=== PATIENT | female | born 1975 | race Two or more races ===

== ENCOUNTER 2018-06-13 16:35 | Emergency (ER) | payer OTHER ==
[~2018-06-13] VITALS: Ht 157.5 cm; Wt 40.4 kg
--- NOTE | 2018-06-13 16:45 | NUR ---
ED Nurse Note: pt brought in by med staff from [facility] facility c/o chest pain x 1 wk, pt states it started when she ate sunday and progressively worsen, pt states it hurts when she breathes. denies sob or -n/v/d. pt AA&ox,4 gcs=15, skin warm and dry, resp even and unlabored, -n/v/d, ambulates w/ steady gait, will cont monitor. NSR on media monitor, staff at the bedside, vss, bed lowest position siderail x2. pt advised to notify staff if needed assist.
--- NOTE | 2018-06-13 17:11 | Emergency Room Report ---
History of Present Illness General Chief Complaint: Chest Pain Source: Patient Present Illness HPI 43-year-old female patient presents the ER complaining of chest pain times 1 week. Patient was referred to ER by nurse practitioner at her treatment facility, [facility] [place]. Patient is currently being treated there for eating disorder, was referred to the ER due to concern over possible refeeding syndrome and requesting EKG and stat cardiac labs. States began refeeding program 1 week and 3 days ago. Patient complaining of left upper chest pain that is reproducible and worse with deep inhalation and palpation. Denies history of heart attack or stroke. Denies history of asthma. Denies history of DVT or PE. Denies history of asthma. Denies taking blood thinner medications. Currently taking Zantac, like Lamictal, gabapentin, prazosin, Geodon, Abilify, vitamin D, Osteo Bi-Flex tabs; was informed by patient therapist who is currently bedside that her primary care provider will request that we do not change or alter any of her medications. Denies fever or recent illness. Denies cough. Denies calf pain. Also complaining of lightheadedness. Denies vertigo. Denies photophobia or phonophobia. Reports symptoms occur with position changes. Denies syncope. Denies hx of seizures. Denies vomiting or diarrhea. Denies improvement in chest pain symptoms with leaning forward. Allergies: Coded Allergies: ASPIRIN (Verified Allergy, Unknown, Swelling, 06/13/18) EGG (Verified Allergy, Unknown, 06/13/18) Patient History Past Medical History: see triage record Last Menstrual Period: 04/2016 Now: No Reviewed Nursing Documentation: PMH: Agreed; PSxH: Agreed Nursing Documentation-PMH Past Medical History: No History, Except For Review of Systems All Other Systems: negative except mentioned in HPI Physical Exam Vital Signs Date Time Temp Pulse Resp B/P (MAP) Pulse Ox O2 Delivery O2 Flow Rate FiO2 06/13/18 16:39 97.5 77 20 111/74 100 Room Air Sp02 EP Interpretation: reviewed, normal General Appearance: well appearing, no apparent distress, alert, GCS 15, non- toxic Head: normocephalic, atraumatic Eyes: bilateral eye normal inspection, bilateral eye PERRL, bilateral eye EOMI ENT: hearing grossly normal, normal pharynx, no angioedema, normal voice, uvula midline, moist mucus membranes Neck: full range of motion, no bony tend Respiratory: lungs clear, normal breath sounds, no rhonchi, no respiratory distress, no accessory muscle use, no wheezing, speaking full sentences Cardiovascular #1: regular rate, rhythm, no edema, other - Left upper chest TTP , no bony deformity, no flail chest Gastrointestinal: non tender, soft, no mass, non-distended, no guarding, no rebound Musculoskeletal: back normal, digits/nails normal, gait/station normal, normal range of motion, non-tender Neurologic: alert, oriented x3, responsive, motor strength/tone normal, sensory intact Skin: no rash Medical Decision Making PA Attestation Dr. Chavarria is my supervising Physician whom patient management has been discussed with. Diagnostic Impression: Primary Impression: Nonspecific chest pain Additional Impression: Urinary tract infection ER Course Pt. presents to the ED c/o chest pain. Ddx considered but are not limited to OR, arrhythmia, DVT, PE, pneumonia, bronchitis, costochondritis, refeeding syndrome, CHF, rhabdomyolysis, electrolyte abnormality, pericarditis. No calf swelling, negative Ronit's sign, no tahycardia, no hemoptysis, no recent travel, low suspicion for DVT pr PE per Well's criteria. Low suspicion for cardiac cause of pain. Will order labs to rule out. On PE, chest is TTP; chest pain likely musculoskeletal in nature. Patient instructed to take NSAIDs as needed for pain symptoms. Provide with Tylenol in the ER. Vital signs: are WNL, pt. is afebrile Ordered X-ray, labs, troponin, EKG and pain medication. ER COURSE Spoke with RN from reasons for the potential for patient was sent from, informed that there was concern for possible cardiac etiology of symptoms and requesting cardiac labs. Patient had been complaining of dizziness and had near syncopal episodes. Cranial nerves intact as tested, no focal neuro deficits. CBC, CMP within normal limits, no elevation in WBCs or LFTs, electrolytes unremarkable BNP not elevated Phosphorus WNL. Troponin not elevated Vit. B1 levels pending, send out lab CXR negative for acute disease EKG shows some T wave flattening, no ST elevations, reviewed by Dr. Chavarria. UA shows elevated WBCs, will treat with antibiotics to cover for possible UTI. Patient denies dysuria, hematuria. Prior to discharge reports mild suprapubic discomfort, repeat abdominal exam shows no TTP, does not require CT abdomen, likely UTI causing symptoms. Labs not consistent refeeding syndrome, no elevation in phosphorus, Followup with primary care provider, discuss referral to cardiology. Patient will be admitted. patient EKG and chest x-ray unremarkable, troponin negative, low suspicion for OR or CHF. Reviewed results with Dr. chavarria. ER precautions given. DISCHARGE: At this time pt is stable for d/c to home. Patient is resting comfortably, in no acute distress, nontoxic appearing, talking without difficulty. Patient to take medications as instructed Will provide with patient care instructions and any necessary prescriptions. Care plan and follow-up instructions provided. Patient instructed to follow-up with primary care provider in 3 - 5 days. Patient questions asked and answered. Patient reports understanding and agreement to treatment plan. ER precautions given. Patient instructed to return to ER immediately for any new or worsening of symptoms including but not limited to increasing SOB, persistent fever. - Please note that this Emergency Department Report was dictated using Rosal[employer] tank installer technology software, occasionally this can lead to erroneous entry secondary to interpretation by the dictation equipment. Labs Test 06/13/18 17:40 06/13/18 17:55 White Blood Count 4.2 K/UL (4.8-10.8) Red Blood Count 4.57 M/UL (4.20-5.40) Hemoglobin 14.2 G/DL (12.0-16.0) Hematocrit 43.1 % (37.0-47.0) Mean Corpuscular Volume 94 FL (80-99) Mean Corpuscular Hemoglobin 31.1 PG (27.0-31.0) Mean Corpuscular Hemoglobin Concent 33.0 G/DL (32.0-36.0) Red Cell Distribution Width 12.5 % (11.6-14.8) Platelet Count 158 K/UL (150-450) Mean Platelet Volume 8.2 FL (6.5-10.1) Neutrophils (%) (Auto) 74.5 % (45.0-75.0) Lymphocytes (%) (Auto) 16.4 % (20.0-45.0) Monocytes (%) (Auto) 5.9 % (1.0-10.0) Eosinophils (%) (Auto) 1.6 % (0.0-3.0) Basophils (%) (Auto) 1.6 % (0.0-2.0) Urine Color Pale yellow Urine Appearance Clear Urine pH 7 (4.5-8.0) Urine Specific [place] 1.005 (1.005-1.035) Urine Protein Negative (NEGATIVE) Urine Glucose (UA) Negative (NEGATIVE) Urine Ketones Negative (NEGATIVE) Urine Blood Negative (NEGATIVE) Urine Nitrite Negative (NEGATIVE) Urine Bilirubin Negative (NEGATIVE) Urine Urobilinogen Normal MG/DL (0.0-1.0) Urine Leukocyte Esterase 3+ (NEGATIVE) Urine RBC 0-2 /HPF (0 - 2) Urine WBC 15-20 /HPF (0 - 2) Urine Squamous Epithelial Cells Many /LPF (NONE/OCC) Urine Bacteria Few /HPF (NONE) Urine HCG, Qualitative Negative (NEGATIVE) Sodium Level 138 MMOL/L (136-145) Potassium Level 4.2 MMOL/L (3.5-5.1) Chloride Level 103 MMOL/L (98-107) Carbon Dioxide Level 29 MMOL/L (21-32) Anion Gap 6 mmol/L (5-15) Blood Urea Nitrogen 10 mg/dL (7-18) Creatinine 0.7 MG/DL (0.55-1.30) Estimat Glomerular Filtration Rate > 60 mL/min (>60) Glucose Level 97 MG/DL (74-106) Calcium Level 9.0 MG/DL (8.5-10.1) Phosphorus Level 3.4 MG/DL (2.5-4.9) Total Bilirubin 0.5 MG/DL (0.2-1.0) Aspartate Amino Transf (AST/SGOT) 20 U/L (15-37) Alanine Aminotransferase (ALT/SGPT) 26 U/L (12-78) Alkaline Phosphatase 125 U/L (46-116) Total Creatine Kinase 272 U/L (26-308) Troponin I 0.000 ng/mL (0.000-0.056) Pro-B-Type Natriuretic Peptide 36 pg/mL (0-125) Total Protein 7.9 G/DL (6.4-8.2) Albumin 4.4 G/DL (3.4-5.0) Globulin 3.5 g/dL Albumin/Globulin Ratio 1.3 (1.0-2.7) EKG Diagnostic Results Rate: normal Rhythm: NSR ST Segments: no acute changes ASA given to the pt in ED: No PA Scribe Michelle Foy PA-C Rhythm Strip Diag. Results EP Interpretation: yes Rate: 73 Rhythm: NSR, no PVC's, no ectopy, other - T wave flattening SCOTTY Jaureguiibe Text Gilbert Foy PA-C Chest X-Ray Diagnostic Results Chest X-Ray Diagnostic Results : Chest X-Ray Ordered: Yes # of Views/Limited/Complete: 1 View Indication: Chest Pain EP Interpretation: Yes PA Xray: Interpretation reviewed, by supervising MD, and agrees with findings. Interpretation: no consolidation, no effusion, no pneumothorax, no acute cardiopulmonary disease Impression: No acute disease SCOTTY ScribVasiliy Foy PA-C Last Vital Signs Date Time Temp Pulse Resp B/P (MAP) Pulse Ox O2 Delivery O2 Flow Rate FiO2 06/13/18 16:39 97.5 77 20 111/74 100 Room Air Status: improved Disposition: HOME, SELF-CARE Condition: Stable Scripts Acetaminophen* (TYLENOL EXTRA STRENGTH*) 500 Mg Tablet 500 MG ORAL Q8H PRN for Prn Headache/Temp > 101, #30 TAB 0 Refills Prov: Pk Foy 06/13/18 Cephalexin* (KEFLEX*) 500 Mg Capsule 500 MG ORAL EVERY 12 HOURS, #14 CAP 0 Refills Prov: Pk Foy 06/13/18 Patient Instructions: Nonspecific Chest Pain, Urinary Tract Infection, Easy-to- Read Additional Instructions: Followup with primary care provider in 3 -5 days. Follow-up with media associate discussed need for cardiac stress testing and further treatment referral at that time. Drink plenty of fluids. Discussed referral to specialist. Take Tylenol OTC for pain symptoms. Take medications as directed. Patient questions asked and answered. ER precautions given, patient instructed to return to ER immediately for any new or worsening of symptoms. Pk Foy Jun 13, 2018 17:11
[2018-06-13] MEDS ORDERED: Acetaminophen 500mg (ES) tab ORAL ONE (17:15)
[2018-06-13 17:45] VITALS: BP 126/74
[2018-06-13 17:58] LABS: APPEARANCE,URINE CLEAR; BILIRUBIN, URINE NEGATIVE (NEGATIVE); COLOR,URINE PALE YELLOW; GLUCOSE, URINE (UA) NEGATIVE (NEGATIVE); KETONES,URINE NEGATIVE (NEGATIVE); LEUKOCYTE ESTERASE ,URINE 3+ (NEGATIVE); NITRITE,URINE NEGATIVE (NEGATIVE); PH,URINE 7 (4.5-8.0); PROTEIN,URINE NEGATIVE (NEGATIVE); UROBILINOGEN,URINE NORMAL MG/DL (0.0-1.0)
[2018-06-13 18:05] LABS: BASOPHILS % (AUTO) 1.6 % (0.0-2.0); EOSINOPHILS % (AUTO) 1.6 % (0.0-3.0); HEMATOCRIT 43.1 % (37.0-47.0); HEMOGLOBIN 14.2 G/DL (12.0-16.0); LYMPHOCYTES % (AUTO) 16.4 % (20.0-45.0); MEAN CORPUSCULAR VOLUME 94 FL (80-99); MONOCYTES % (AUTO) 5.9 % (1.0-10.0); NEUTROPHILS % (AUTO) 74.5 % (45.0-75.0); PLATELET COUNT 158 K/UL (150-450); RED BLOOD COUNT 4.57 M/UL (4.20-5.40); RED CELL DISTRIBUTION WIDTH 12.5 % (11.6-14.8); WHITE BLOOD COUNT 4.2 K/UL (4.8-10.8)
[2018-06-13 18:12] LABS: ANION GAP 6 mmol/L (5-15); BLOOD UREA NITROGEN 10 mg/dL (7-18); CARBON DIOXIDE 29 MMOL/L (21-32); CHLORIDE 103 MMOL/L (98-107); CREATININE 0.7 MG/DL (0.55-1.30); POTASSIUM 4.2 MMOL/L (3.5-5.1); SODIUM 138 MMOL/L (136-145)
[2018-06-13 18:25] LABS: ALANINE AMINOTRANSFERASE 26 U/L (12-78); ALBUMIN 4.4 G/DL (3.4-5.0); ALBUMIN/GLOBULIN RATIO 1.3 (1.0-2.7); ALKALINE PHOSPHATASE 125 U/L (46-116); ASPARTATE AMINO TRANSFERASE 20 U/L (15-37); BILIRUBIN,TOTAL 0.5 MG/DL (0.2-1.0)
[2018-06-13 18:33] LABS: CREATINE KINASE 272 U/L (26-308)
[2018-06-13 18:45] VITALS: BP 108/69
--- NOTE | 2018-06-13 19:05 | NUR ---
ED Nurse Note: pt is cleared to be d/c per ER provider, d/c instruction and prescription provided per ER provider, pt education done via discussion and hand out, pt iv d/c and wristband removed, dressing applied, pt tolerated well, pt advised to follow up with pcp and continue care, pt and caregiver from eating disorder facility staff verbalized understanding and agrees with plan. pt no neuro changes, vss, nsr on classroom monitor, ambulatory w/steady gait.
[2018-06-13] MEDS ORDERED: CEPHALEXIN500 MG ORAL (19:40)
[2018-06-13] MEDS ORDERED: TYLENOL EXTRA500 MG ORAL (19:40)
[2018-06-13 19:42] VITALS: BP 103/6
[2018-06-13] MEDS ORDERED: Methocarbamol 500mg tab ORAL ONE (19:45)
--- NOTE | 2018-06-14 11:19 | Diagnostic Imaging Report ---
Indication: Chest pain Comparison: None A single view chest radiograph was obtained. Findings: No definite infiltrate or pulmonary vascular congestion identified. The heart is enlarged. The aorta is mildly enlarged consistent with atherosclerotic vascular disease. The bones are osteopenic. Impression: No acute disease
--- NOTE | 2018-06-16 13:06 | Cardiology Report ---
APPROVED REPORT EKG Measurement Heart [id number] Normal sinus rhythm Left atrial enlargement Nonspecific T wave abnormality Abnormal ECG
== END 2018-06-13 19:15 | disposition home or self-care (01) ==
LOC: EMR 18:37
DX: R07.9 Chest pain, unspecified (principal); N39.0 Urinary tract infection, site not specified; Z91.012 Allergy to eggs; Z88.6 Allergy status to analgesic agent
CPT/HCPCS: 36415; 71045; 80053; 81003; 81025; 82550; 83880; 84100; 84425; 84484; 85025; 86710; 87086; 93005; 99284